=== PATIENT | female | born 1980 | race American Indian/Alaskan Native ===

== ENCOUNTER 2017-04-29 08:22 | Emergency (ER) | payer MEDICAID, OTHER ==
[~2017-04-29] VITALS: Ht 160 cm; Wt 91.8 kg
[2017-04-29 08:24] VITALS: BP 144/90
[2017-04-29] MEDS ORDERED: HYDROcodone/APAP 5/325 TABLET ONE (08:57)
[2017-04-29] MEDS ORDERED: HYDROcodone/APAP 5/325 TABLET PO ONE (09:00)
== END 2017-04-29 09:38 | disposition home or self-care (01) ==
LOC: ED 08:41
DX: S90.31XA Contusion of right foot, initial encounter (principal); I10 Essential (primary) hypertension; F17.210 Nicotine dependence, cigarettes, uncomplicated; W01.0XXA Fall on same level from slipping, tripping and stumbling without subsequent striking against object, initial encounter; Y93.39 Activity, other involving climbing, rappelling and jumping off; Y92.89 Other specified places as the place of occurrence of the external cause; Y99.8 Other external cause status
CPT/HCPCS: 99284